=== PATIENT | male | born 1950 | race Caucasian/White ===

== ENCOUNTER 2018-03-08 14:11 | Emergency (ER) | payer MEDICARE, MEDICAID ==
[~2018-03-08] VITALS: Ht 180.3 cm; Wt 80.7 kg
[~2018-03-08 14:11] MED LIST: BENA40TA8 PO; GLIP10TA11 PO; METF10004 PO
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
[2018-03-08] MEDS ORDERED: IBUPROFEN 600 MG TABLET PO ONE ×2 (14:30→14:36)
--- NOTE | 2018-03-08 14:38 | NUR ---
XRAY AT BS
[2018-03-08] MEDS ORDERED: ATEN50TA PO (14:46)
[2018-03-08] MEDS ORDERED: TDAP [DIPH/PERTUSSIS/TET] 0.5 ML VIAL IM ONE ×2 (15:14→15:30)
[2018-03-08 15:19] VITALS: BP 151/84
== END 2018-03-08 15:20 | disposition home or self-care (01) ==
LOC: ER 14:12
DX: S92.534A Nondisplaced fracture of distal phalanx of right lesser toe(s), initial encounter for closed fracture (principal); S40.021A Contusion of right upper arm, initial encounter; S80.11XA Contusion of right lower leg, initial encounter; I10 Essential (primary) hypertension; E11.9 Type 2 diabetes mellitus without complications; V83.7XXA Person on outside of special industrial vehicle injured in nontraffic accident, initial encounter; Y93.01 Activity, walking, marching and hiking; Y92.89 Other specified places as the place of occurrence of the external cause; Y99.0 Civilian activity done for income or pay
CPT/HCPCS: 73060; 73590; 73610; 73630; 90471; 90715; 99284; A4606; Z7610

== ENCOUNTER 2018-03-09 13:26 | Emergency (ER) | payer MEDICARE, MEDICAID ==
[~2018-03-09] VITALS: Ht 180.3 cm; Wt 79.4 kg
[~2018-03-09 13:26] MED LIST changes: +ATEN50TA PO
[2018-03-09] MEDS ORDERED: BACITRACIN ZINC OINT PACKET 1 EA PACKET TP ONE (14:00)
[2018-03-09] MEDS ORDERED: MUPIROCIN OINT 2% 22 GM TUBE TP ONE (14:00)
[2018-03-09 14:02] VITALS: BP 155/75
== END 2018-03-09 14:30 | disposition home or self-care (01) ==
LOC: ER 13:29
DX: S92.501A Displaced unspecified fracture of right lesser toe(s), initial encounter for closed fracture (principal); S39.012A Strain of muscle, fascia and tendon of lower back, initial encounter; S90.414A Abrasion, right lesser toe(s), initial encounter; E11.9 Type 2 diabetes mellitus without complications; I10 Essential (primary) hypertension; W18.39XA Other fall on same level, initial encounter; Y93.89 Activity, other specified; Y92.89 Other specified places as the place of occurrence of the external cause; Y99.8 Other external cause status
CPT/HCPCS: A4606; A6403; Z7610

== ENCOUNTER 2018-11-09 16:36 | Emergency (ER) | payer MEDICARE, MEDICAID ==
[~2018-11-09] VITALS: Ht 180.3 cm; Wt 79.4 kg
[~2018-11-09 16:36] MED LIST changes: +METF-442 PO; -METF10004 PO
--- NOTE | 2018-11-09 16:36 | NUR ---
BB SELF: C/O DIZZINESS X 2-3 DAYS. PALPITATIONS NOTED TODAY. DENIES ANY CP. DENIES ANY DIZZINESS. PT AMBULATORY WITH STEADY GAIT. RR EVEN AND UNLABORED. VSAravind. AT BEDSIDE FOR SONYA.
[2018-11-09] MEDS ORDERED: ASPI-1152 PO (16:51)
[2018-11-09] MEDS ORDERED: diphenhydrAMINE HCL 50 MG/ML VIAL ONE (16:58)
[2018-11-09] MEDS ORDERED: diphenhydrAMINE HCL 50 MG/ML VIAL IV ONE (17:00)
[2018-11-09] MEDS ORDERED: IV NS 0.9% 1,000 ML BAG IV ONE ×2 (17:00→19:00)
[2018-11-09 17:07] LABS: EOSINOPHILS % (AUTO) 1.7 % (0.0-6.0); HEMATOCRIT 39 % (39-51); HEMOGLOBIN 13.3 g/dL (13.5-17.5); LYMPHOCYTES # (AUTO) 1.4 /CMM (0.8-4.8); LYMPHOCYTES % (AUTO) 28.3 % (20.0-44.0); MEAN CORPUSCULAR HGB CONC 34 g/dl (31.0-36.0); MEAN CORPUSCULAR VOLUME 102 fL (80-96); MONOCYTES # (AUTO) 0.4 /CMM (0.1-1.30); MONOCYTES % (AUTO) 8.5 % (2.0-12.0); NEUTROPHILS % (AUTO) 60.5 % (43.0-81.0); PLATELET COUNT (AUTO) 201 /CMM (150-450); RED BLOOD CELL COUNT(AUTO) 3.85 MIL/uL (4.5-6.0); WHITE BLOOD COUNT (AUTO) 4.9 K/uL (4.3-11.0)
[2018-11-09 17:26] LABS: ALANINE AMINOTRANSFERASE 21 U/L (12-78); ALKALINE PHOSPHATASE 36 U/L (46-116); BILIRUBIN,DIRECT 0.1 mg/dL (0.0-0.2); BILIRUBIN,TOTAL 0.5 mg/dL (0.2-1.0); CALCIUM, SERUM 9.3 mg/dL (8.5-10.1); CARBON DIOXIDE 25 mmol/L (21-32); CHLORIDE 107 mmol/L (98-107); CREATININE 1.1 mg/dL (0.6-1.3); GLUCOSE 176 mg/dL (74-106); POTASSIUM 4.8 mmol/L (3.5-5.1); SODIUM SERUM 140 mmol/L (136-145); TOTAL PROTEIN, SERUM 6.5 g/dL (6.4-8.2); UREA NITROGEN, BLOOD 25 mg/dL (7-18)
[2018-11-09 17:39] LABS: ASPARTATE AMINOTRANSFERASE 12 U/L (15-37)
--- NOTE | 2018-11-09 19:00 | NUR ---
[address] MORE [address] NS PER [address] ARREGUIN. PT HR 110'S
--- NOTE | 2018-11-09 19:12 | NUR ---
REPORT RECIEVED FROM TY THEODORE FOR PHYLLIS.
--- NOTE | 2018-11-09 19:30 | NUR ---
Patient discharged to home in stable condition. Written and verbal after care instructions given. Patient verbalizes understanding of instruction.IV removed. Catheter intact and site benign. Pressure and 4x4 applied to site. No bleeding noted. ambulatory with steady gait.
[2018-11-09 19:40] VITALS: BP 141/87
== END 2018-11-09 19:40 | disposition home or self-care (01) ==
LOC: ER 16:37
DX: E86.0 Dehydration (principal); R42 Dizziness and giddiness; R51 Headache; I10 Essential (primary) hypertension; E11.9 Type 2 diabetes mellitus without complications; R00.0 Tachycardia, unspecified; I44.4 Left anterior fascicular block; Z79.82 Long term (current) use of aspirin
CPT/HCPCS: 36415; 70450; 71045; 80048; 80076; 84484; 85025; 93005; 96361; 96374; 99284; J1200; J7030 ×2

== ENCOUNTER 2019-03-09 10:27 | Emergency (ER) | payer MEDICARE, MEDICAID ==
[~2019-03-09] VITALS: Ht 180.3 cm; Wt 80.7 kg
[~2019-03-09 10:27] MED LIST changes: +ASPI-1152 PO
[2019-03-09 10:47] VITALS: BP 134/78
== END 2019-03-09 12:18 | disposition home or self-care (01) ==
LOC: ER 10:30
DX: M25.511 Pain in right shoulder (principal); E11.9 Type 2 diabetes mellitus without complications; I10 Essential (primary) hypertension; Z98.890 Other specified postprocedural states; Z79.82 Long term (current) use of aspirin; Z79.84 Long term (current) use of oral hypoglycemic drugs; Z79.899 Other long term (current) drug therapy
CPT/HCPCS: 73030-TC

== ENCOUNTER 2019-04-02 10:42 | Emergency (ER) | payer MEDICARE, MEDICAID ==
[~2019-04-02] VITALS: Ht 180.3 cm; Wt 79.4 kg
[2019-04-02] MEDS ORDERED: ACETAMINOPHEN ES 500 MG TABLET PO ONE (11:00)
[2019-04-02] MEDS ORDERED: IV NS 0.9% 1,000 ML BAG IV ONE (11:00)
--- NOTE | 2019-04-02 11:00 | NUR ---
C/O DYSURIA x 2 DAYS. PATIENT AA/OX4, NO RESPIRATORY DISTRESS NOTED. UA SAMPLE OBTAINED ANDS ENT TO LAB. DR. CARDENAS AT BEDSIDE FOR EVAL. ATTACHED TO THE NET DEVELOPER SOFTWARE ENGINEER C, CHANGED INTO GOWN.
[2019-04-02] MEDS ORDERED: ACETAMINOPHEN ES 500 MG TABLET ONE (11:05)
[2019-04-02 11:16] LABS: BASOPHILS # (AUTO) 0.2 /CMM (0.0-0.2); BASOPHILS % (AUTO) 1.3 % (0.0-2.0); EOSINOPHILS % (AUTO) 0.3 % (0.0-6.0); HEMATOCRIT 41 % (39-51); HEMOGLOBIN 13.9 g/dL (13.5-17.5); LYMPHOCYTES # (AUTO) 0.7 /CMM (0.8-4.8); LYMPHOCYTES % (AUTO) 5.7 % (20.0-44.0); MEAN CORPUSCULAR HGB CONC 34 g/dl (31.0-36.0); MEAN CORPUSCULAR VOLUME 101 fL (80-96); MONOCYTES # (AUTO) 0.7 /CMM (0.1-1.30); MONOCYTES % (AUTO) 5.5 % (2.0-12.0); NEUTROPHILS # (AUTO) 11.6 /CMM (1.8-8.9); NEUTROPHILS % (AUTO) 87.2 % (43.0-81.0); PLATELET COUNT (AUTO) 182 /CMM (150-450); RED BLOOD CELL COUNT(AUTO) 4.04 MIL/uL (4.5-6.0); WHITE BLOOD COUNT (AUTO) 13.3 K/uL (4.3-11.0)
[2019-04-02 11:18] LABS: APPEARANCE,URINE Clear (CLEAR); BILIRUBIN,URINE Negative (NEGATIVE); BLOOD, URINE Large Ery/uL (NEGATIVE); COLOR,URINE Yellow (YELLOW); KETONES,URINE 15 (NEGATIVE); LEUKOCYTE ESTERASE ,URINE Trace (NEGATIVE); NITRITE, URINE Negative (NEGATIVE); PROTEIN,URINE 100 mg/dl (NEGATIVE); UGLUCOSE >=1000 mg/dL (NEGATIVE)
[2019-04-02 11:24] LABS: CALCIUM, SERUM 9.4 mg/dL (8.5-10.1); CARBON DIOXIDE 29 mmol/L (21-32); CHLORIDE 99 mmol/L (98-107); CREATININE 1.1 mg/dL (0.6-1.3); GLUCOSE 328 mg/dL (74-106); SODIUM SERUM 137 mmol/L (136-145); UREA NITROGEN, BLOOD 16 mg/dL (7-18)
[2019-04-02 11:29] LABS: ALANINE AMINOTRANSFERASE 16 U/L (12-78); ALBUMIN 3.4 g/dL (3.4-5.0); ALKALINE PHOSPHATASE 39 U/L (46-116); ASPARTATE AMINOTRANSFERASE 9 U/L (15-37); BILIRUBIN,DIRECT 0.2 mg/dL (0.0-0.2); TOTAL PROTEIN, SERUM 7.4 g/dL (6.4-8.2)
[2019-04-02 11:42] LABS: BACTERIA,URINE Rare /HPF (None Seen); SQUAMOUS EPITHELIAL CELL,UR Rare /HPF (None Seen)
[2019-04-02] MEDS ORDERED: CEFTRIAXONE 1GM BAG (ER ONLY) 50 ML IV ONE (12:00)
[2019-04-02] MEDS ORDERED: CEFTRIAXONE 1GM BAG (ER ONLY) 1 GM/50 ML PIGGYBACK IV ONE (12:00)
--- NOTE | 2019-04-02 12:37 | NUR ---
BLADDER SCAN DONE SHOWS 106ML POST VOID.
[2019-04-02] MEDS ORDERED: IV NS 0.9% 500 ML IV ONE (13:00)
--- NOTE | 2019-04-02 13:25 | NUR ---
PATIENT A/OX4, DENIES PAIN AT THIST CAROLE. IV removed. Catheter intact and site benign. Pressure and 4x4 applied to site. No bleeding noted.Patient discharged to home in stable condition. Written and verbal after care instructions given. Patient verbalizes understanding of instruction.
[2019-04-02 13:37] VITALS: BP 115/64
== END 2019-04-02 13:38 | disposition home or self-care (01) ==
LOC: ER 10:42
DX: N12 Tubulo-interstitial nephritis, not specified as acute or chronic (principal); E11.65 Type 2 diabetes mellitus with hyperglycemia; I10 Essential (primary) hypertension; Z98.890 Other specified postprocedural states; Z79.82 Long term (current) use of aspirin; Z79.84 Long term (current) use of oral hypoglycemic drugs; Z79.899 Other long term (current) drug therapy
CPT/HCPCS: 36415; 71045; 80048; 80076; 81001; 82962; 83605; 84145; 84484; 85025; 85730; 87040 ×2; 87086; 93005; 96361; 96374; 99284; J0696; J7030; J7040; 81000-TC; 87186-TC

== ENCOUNTER 2020-01-28 17:14 | Emergency (ER) | payer MEDICARE, OTHER ==
[~2020-01-28] VITALS: Ht 180.3 cm; Wt 79.4 kg
[2020-01-28] MEDS ORDERED: TAMS-12 MT (17:20)
[2020-01-28] MEDS ORDERED: IV NS 0.9% 1,000 ML BAG IV ONE (18:00)
[2020-01-28 18:11] LABS: BASOPHILS % (AUTO) 0.6 % (0.0-2.0); EOSINOPHILS % (AUTO) 0.7 % (0.0-6.0); HEMATOCRIT 43 % (39-51); HEMOGLOBIN 14.5 g/dL (13.5-17.5); LYMPHOCYTES # (AUTO) 1.5 /CMM (0.8-4.8); LYMPHOCYTES % (AUTO) 22.8 % (20.0-44.0); MEAN CORPUSCULAR HGB CONC 33 g/dl (31.0-36.0); MEAN CORPUSCULAR VOLUME 104 fL (80-96); MONOCYTES # (AUTO) 0.6 /CMM (0.1-1.30); MONOCYTES % (AUTO) 8.6 % (2.0-12.0); NEUTROPHILS # (AUTO) 4.4 /CMM (1.8-8.9); NEUTROPHILS % (AUTO) 67.3 % (43.0-81.0); PLATELET COUNT (AUTO) 227 /CMM (150-450); RED BLOOD CELL COUNT(AUTO) 4.18 MIL/uL (4.5-6.0); WHITE BLOOD COUNT (AUTO) 6.5 K/uL (4.3-11.0)
[2020-01-28 18:15] LABS: CARBON DIOXIDE 26 mmol/L (21-32); CHLORIDE 103 mmol/L (98-107); GLUCOSE 192 mg/dL (74-106); POTASSIUM 4.8 mmol/L (3.5-5.1); SODIUM SERUM 139 mmol/L (136-145); UREA NITROGEN, BLOOD 38 mg/dL (7-18)
--- NOTE | 2020-01-28 18:20 | NUR ---
patient came in to the er c/o dizziness x 3 days. On room air, breathing evenly and unlabored. connected to the monitor and pulse ox. kept comfortable, will continue to monitor accordingly.
--- NOTE | 2020-01-28 20:32 | NUR ---
IV removed. Catheter intact and site benign. Pressure and 4x4 applied to site. No bleeding noted.Patient discharged to home in stable condition. Written and verbal after care instructions given. Patient verbalizes understanding of instruction.
[2020-01-28 20:36] VITALS: BP 124/67
== END 2020-01-28 20:36 | disposition home or self-care (01) ==
LOC: ER 17:14
DX: E86.0 Dehydration (principal); N17.9 Acute kidney failure, unspecified; R42 Dizziness and giddiness; I10 Essential (primary) hypertension; E11.9 Type 2 diabetes mellitus without complications; Z98.890 Other specified postprocedural states; Z79.899 Other long term (current) drug therapy; Z79.82 Long term (current) use of aspirin
CPT/HCPCS: 36415; 70450; 80048; 82962; 84484; 85025; 93005; 96360; 99285; J7030

== ENCOUNTER 2020-09-20 16:38 | Inpatient (IN) | payer MEDICARE, OTHER ==
[~2020-09-20] VITALS: Ht 180.3 cm; Wt 83.9 kg
[~2020-09-20 16:38] MED LIST changes: -ASPI-1152 PO; +ASPI-1420 PO; +TAMS-12 PO
--- NOTE | 2020-09-20 16:38 | NUR ---
PT BIB SELF C/O DIZZINESS AND BLURRING OF VISION FOR 1 WEEK. PT IS AAOX4, NOT IN RESPIRATORY DISTRESS, HOOKED TO CONTACT LENS CUTTER, KEPT RESTED AND COMFORTABLE. WILL CONTINUE TO MONITOR.
--- NOTE | 2020-09-20 17:24 | NUR ---
SEEN AND EXAMINED BY .
--- NOTE | 2020-09-20 17:43 | NUR ---
PHLEB AT BEDSIDE FOR BLOOD DRAW.
[2020-09-20 17:54] LABS: BASOPHILS % (AUTO) 0.8 % (0.0-2.0); EOSINOPHILS % (AUTO) 2.2 % (0.0-6.0); HEMATOCRIT 39 % (39-51); HEMOGLOBIN 13.3 g/dL (13.5-17.5); LYMPHOCYTES # (AUTO) 1.4 /CMM (0.8-4.8); LYMPHOCYTES % (AUTO) 25.9 % (20.0-44.0); MEAN CORPUSCULAR HGB CONC 34 g/dl (31.0-36.0); MEAN CORPUSCULAR VOLUME 101 fL (80-96); MONOCYTES # (AUTO) 0.5 /CMM (0.1-1.30); MONOCYTES % (AUTO) 8.9 % (2.0-12.0); NEUTROPHILS # (AUTO) 3.3 /CMM (1.8-8.9); NEUTROPHILS % (AUTO) 62.2 % (43.0-81.0); PLATELET COUNT (AUTO) 210 /CMM (150-450); RED BLOOD CELL COUNT(AUTO) 3.86 MIL/uL (4.5-6.0); WHITE BLOOD COUNT (AUTO) 5.2 K/uL (4.3-11.0)
--- NOTE | 2020-09-20 18:03 | NUR ---
PT IS WHEELED TO CT SCAN VIA [facility].
[2020-09-20 18:19] LABS: ALANINE AMINOTRANSFERASE 22 U/L (12-78); ALBUMIN 3.6 g/dL (3.4-5.0); ALKALINE PHOSPHATASE 32 U/L (46-116); ASPARTATE AMINOTRANSFERASE 12 U/L (15-37); BILIRUBIN,DIRECT 0.1 mg/dL (0.0-0.2); BILIRUBIN,TOTAL 0.4 mg/dL (0.2-1.0); CALCIUM, SERUM 9.5 mg/dL (8.5-10.1); CARBON DIOXIDE 29 mmol/L (21-32); CHLORIDE 103 mmol/L (98-107); CREATININE 1.3 mg/dL (0.6-1.3); GLUCOSE 198 mg/dL (74-106); SODIUM SERUM 138 mmol/L (136-145); TOTAL PROTEIN, SERUM 6.9 g/dL (6.4-8.2)
[2020-09-20 18:25] LABS: POTASSIUM 6.6 mmol/L (3.5-5.1)
[2020-09-20 18:42] LABS: UREA NITROGEN, BLOOD 21 mg/dL (7-18)
[2020-09-20] MEDS ORDERED: DEXTROSE 50%-WATER 50 ML DISP.SYRIN ONE (18:45)
[2020-09-20] MEDS ORDERED: SODIUM BICARBONATE SYR 50 MEQ/50 ML DISP.SYRIN ONE (18:45)
[2020-09-20] MEDS ORDERED: INSULIN REGULAR, HUMAN 100 UNIT/ML 10 ML VIAL ONE (18:46)
[2020-09-20] MEDS ORDERED: ALBUTEROL FS 2.5 MG/3 ML VIAL.NEB ONE (19:00)
[2020-09-20] MEDS ORDERED: SODIUM BICARBONATE SYR 50 MEQ/50 ML DISP.SYRIN IV ONE (19:00)
[2020-09-20] MEDS ORDERED: IV NS 0.9% 1,000 ML BAG IV ONE (19:00)
[2020-09-20] MEDS ORDERED: INSULIN REGULAR, HUMAN 100 UNIT/ML 10 ML VIAL IV ONE (19:00)
[2020-09-20] MEDS ORDERED: ALBUTEROL FS 2.5 MG/3 ML VIAL.NEB NEB ONE (19:00)
[2020-09-20] MEDS ORDERED: DEXTROSE 50%-WATER 50 ML DISP.SYRIN IV ONE (19:00)
--- NOTE | 2020-09-20 19:13 | NUR ---
CALLED DR. GRISSOM [phone], INSTRUCTIONS STATES TO CALL [facility] FOR ADMISSION. CALLED [facility] FOR PANEL ADMISSION. MARCUS SHEN PAGED.
--- NOTE | 2020-09-20 19:14 | NUR ---
CALLED FOR COVID SWAB
--- NOTE | 2020-09-20 19:29 | NUR ---
COVID SWAB SENT TO LAB
--- NOTE | 2020-09-20 19:29 | NUR ---
ATTEMPTED TO CALL DR. GRISSOM DIRECT NUMBER, VM INSTRUCTIONS TO CALL [facility]
--- NOTE | 2020-09-20 20:24 | NUR ---
PER LAB COVID NEGATIVE
--- NOTE | 2020-09-20 20:27 | NUR ---
CALLED RN SUP FOR TELE BED
--- NOTE | 2020-09-20 20:28 | NUR ---
PT ACCEPTED TO 322-1
[2020-09-20] MEDS ORDERED: ACETAMINOPHEN 325 MG TABLET PO PRN (20:30)
[2020-09-20] MEDS ORDERED: ONDANSETRON HCL/PF 4 MG/2 ML VIAL IVP PRN (20:30)
[2020-09-20] MEDS ORDERED: IV NS 0.9% 1,000 ML IV PRN (20:30)
[2020-09-20] MEDS ORDERED: Z GUARD REMEDY 2 OZ OINT TP PRN (20:30)
--- NOTE | 2020-09-20 20:42 | NUR ---
CALLED IN REPORT TO FAWAD THEODORE
[2020-09-20 21:00] VITALS: BP 146/93
--- NOTE | 2020-09-20 21:15 | NUR ---
TELE/RN OPENING NOTES RECEIVED PATIENT FROM ER, PATIENT ARRIVED ON UNIT AT 2053HRS VIA GURNEY. PATIENT WAS ABLE TO AMBULATE TO BED. PATIENT IS ALERT AND ORIENTED X 4. PATIENTS BREATHING IS EVEN AND UNLABORED. PATIENT IN NO SIGNS OF SOB OR RESPIRATORY DISTRESS. PATIENT DENIES PAIN, NO CHEST PAIN NOTED. PATIENT IS STABLE ON ROOM AIR, V/S ARE WITHIN NORMAL LIMITS. PATIENT SKIN IS INTACT. PATIENT SIGNED BELONGINGS LISTS. SAFETY MEASURES ARE IN PLACE, BED IS LOCKED AND PLACED IN THE LOWEST POSITION, SIDE RAILS UP X 2, CALL LIGHT IS WITHIN REACH. WILL CONTINUE TO MONITOR THROUGH OUT SHIFT.
[2020-09-20] MEDS: ENOXAPARIN SODIUM 40 MG/0.4 ML DISP.SYRIN SQ SCH (22:17)
[2020-09-21 00:56] VITALS: BP 123/71
[2020-09-21 06:34] LABS: BASOPHILS % (AUTO) 0.7 % (0.0-2.0); EOSINOPHILS % (AUTO) 1.8 % (0.0-6.0); HEMATOCRIT 39 % (39-51); LYMPHOCYTES # (AUTO) 1.6 /CMM (0.8-4.8); LYMPHOCYTES % (AUTO) 31.2 % (20.0-44.0); MEAN CORPUSCULAR HGB CONC 34 g/dl (31.0-36.0); MEAN CORPUSCULAR VOLUME 101 fL (80-96); MONOCYTES # (AUTO) 0.5 /CMM (0.1-1.30); MONOCYTES % (AUTO) 9.4 % (2.0-12.0); NEUTROPHILS % (AUTO) 56.9 % (43.0-81.0); PLATELET COUNT (AUTO) 192 /CMM (150-450); RED BLOOD CELL COUNT(AUTO) 3.82 MIL/uL (4.5-6.0); WHITE BLOOD COUNT (AUTO) 5.3 K/uL (4.3-11.0)
--- NOTE | 2020-09-21 06:50 | NUR ---
MS/RN CLOSING NOTES PATIENT IN BED SLEEPING EASY TO AROUSE. PATIENT IS ALERT AND ORIENTED X 4. PATIENTS BREATHING IS EVEN AND UNLABORED. NO SIGN OF SOB OR RESPIRATORY DISTRESS NOTED. PATIENT STATES NO PAIN AT THIS TIME. PATIENT HAS IV ACCESS ON LEFT HAND 18G INTACT RUNNING NS AT 75 ML/HR. ALL NEEDS HAVE BEEN MET DURING SHIFT. SAFETY MEASURES ARE IN PLACE, BED IS LOCKED AND PLACED IN THE LOWEST POSITION, SIDE RAILS UP X 2, CALL LIGHT IS WITHIN REACH. WILL ENDORSE CARE TO DAY SHIFT NURSE.
[2020-09-21 07:30] LABS: THYROID STIMULATING HORMONE 0.947 uIU/mL (0.358-3.74)
[2020-09-21 07:46] LABS: CALCIUM, SERUM 8.7 mg/dL (8.5-10.1); CREATININE 0.9 mg/dL (0.6-1.3); MAGNESIUM 1.9 mg/dL (1.8-2.4); PHOSPHORUS 3.6 mg/dL (2.5-4.9); POTASSIUM 5.2 mmol/L (3.5-5.1)
[2020-09-21] MEDS ORDERED: ASPIRIN EC 81 MG TABLET.DR PO ONE (07:46)
[2020-09-21] MEDS ORDERED: LACTULOSE 10 G/15 ML UDC (PYXIS) ONE (07:46)
[2020-09-21] MEDS ORDERED: BENAZEPRIL HCL 20 MG TABLET ONE (07:47)
[2020-09-21] MEDS ORDERED: ATENOLOL 50 MG TABLET ONE (07:47)
--- NOTE | 2020-09-21 07:59 | NUR ---
TELE/RN OPENING NOTES REPORT RECEIVED AT BEDSIDE. PATIENT A&O X4. RESPIRATIONS EVEN AND UNLABORED. NO SIGNS OF SOB OR RESPIRATORY DISTRESS. PATIENT DENIES PAIN, NO CHEST PAIN NOTED. PATIENT IS STABLE ON ROOM AIR, V/S ARE WITHIN NORMAL LIMITS. SAFETY MEASURES IN PLACE. WILL CONTINUE TO MONITOR
[2020-09-21] MEDS: LACTULOSE 10 G/15 ML UDC (PYXIS) PO SCH ×2 (08:12→18:20)
[2020-09-21] MEDS: METFORMIN 500 MG TABLET PO SCH ×2 (08:14→18:20)
[2020-09-21] MEDS: PANTOPRAZOLE 40 MG TABLET.DR PO SCH (08:14)
[2020-09-21] MEDS: ATENOLOL 50 MG TABLET PO SCH (08:16)
[2020-09-21] MEDS: ASPIRIN EC 81 MG TABLET.DR PO SCH (08:16)
[2020-09-21 08:17] VITALS: BP 129/65
[2020-09-21] MEDS: glipiZIDE 10 MG TABLET PO SCH ×2 (08:17→17:30)
[2020-09-21] MEDS ORDERED: ENOXAPARIN SODIUM 40 MG/0.4 ML DISP.SYRIN SQ SCH (09:00)
[2020-09-21] MEDS ORDERED: BENAZEPRIL HCL 20 MG TABLET PO SCH (09:00)
[2020-09-21 12:11] VITALS: BP 151/96
--- NOTE | 2020-09-21 16:04 | NUR ---
MS/TELE NOTE NOTIFIED BY DR. MCKEE PT MRI SHOWED SWELLING TO LEFT SIDE OF BRAIN AND HE RECOMMENDED FOLLOW UP MRI WITH CONTRAST @1440. NOTIFIED AT 1448 VIA SMS. AWAITING RESPONSE AT THIS TIME. NNO.
[2020-09-21 16:26] VITALS: BP 135/76
--- NOTE | 2020-09-21 19:32 | NUR ---
RN NOTES REPORT RECEIVED AT BEDSIDE. PATIENT A&O X4. RESPIRATIONS EVEN AND UNLABORED. NO SIGNS OF SOB OR RESPIRATORY DISTRESS. PATIENT DENIES PAIN, NO CHEST PAIN NOTED. PATIENT IS STABLE ON ROOM AIR TOLERATING WELL. SAFETY MEASURES IN PLACE. WILL CONTINUE TO MONITOR.
[2020-09-21 20:27] VITALS: BP 139/72
[2020-09-21] MEDS: ENOXAPARIN SODIUM 40 MG/0.4 ML DISP.SYRIN SQ SCH (21:10)
[2020-09-21 23:59] VITALS: BP 124/70
[2020-09-22 02:33] VITALS: BP 124/70
[2020-09-22 04:00] VITALS: BP 147/67
[2020-09-22 04:27] VITALS: BP 143/88
[2020-09-22 06:32] LABS: BASOPHILS % (AUTO) 0.7 % (0.0-2.0); HEMATOCRIT 40 % (39-51); HEMOGLOBIN 13.9 g/dL (13.5-17.5); LYMPHOCYTES # (AUTO) 1.6 /CMM (0.8-4.8); LYMPHOCYTES % (AUTO) 31.7 % (20.0-44.0); MEAN CORPUSCULAR HGB CONC 34 g/dl (31.0-36.0); MEAN CORPUSCULAR VOLUME 100 fL (80-96); MONOCYTES # (AUTO) 0.5 /CMM (0.1-1.30); MONOCYTES % (AUTO) 9.5 % (2.0-12.0); NEUTROPHILS # (AUTO) 2.9 /CMM (1.8-8.9); NEUTROPHILS % (AUTO) 56.1 % (43.0-81.0); PLATELET COUNT (AUTO) 200 /CMM (150-450); RED BLOOD CELL COUNT(AUTO) 4.02 MIL/uL (4.5-6.0); WHITE BLOOD COUNT (AUTO) 5.2 K/uL (4.3-11.0)
--- NOTE | 2020-09-22 06:32 | NUR ---
RN NOTES PT A&O X4. RESPIRATIONS EVEN AND UNLABORED. NO SIGNS OF SOB OR RESPIRATORY DISTRESS. PATIENT DENIES PAIN, NO CHEST PAIN NOTED. PATIENT IS STABLE ON ROOM AIR TOLERATING WELL. SAFETY MEASURES IN PLACE. WILL ENDORSE CARE TO DAY SHIFT.
[2020-09-22 07:26] LABS: ALBUMIN 3.2 g/dL (3.4-5.0); BILIRUBIN,TOTAL 0.5 mg/dL (0.2-1.0); CALCIUM, SERUM 8.8 mg/dL (8.5-10.1); CREATININE 0.9 mg/dL (0.6-1.3); MAGNESIUM 1.7 mg/dL (1.8-2.4); PHOSPHORUS 3.3 mg/dL (2.5-4.9); POTASSIUM 4.1 mmol/L (3.5-5.1); TOTAL PROTEIN, SERUM 6.6 g/dL (6.4-8.2)
--- NOTE | 2020-09-22 07:39 | NUR ---
CHIEF SERVICE DISPATCHER OPENING NOTE PT RECEIVED IN BED, RESTING, AROUSABLE AND RESPONSIVE. A/O X 4 WITH NO C/O PAIN AT THIS TIME. PT IS ON ROOM AIR WITH NO SOB OR RESPIRATORY DISTRESS NOTED. PT'S TELE MONITOR SHOWS SINUS BRADYCARDIA AT 57 BPM WITH NO S/SX OF CARDIAC DISTRESS NOTED. PT'S IV ACCESS IS ON LEFT HAND G#18, PATENT, INTACT AND FLUSHING WELL WITH NS RUNNING AT 50 ML/HR, NO S/SX INFECTION, INFILTRATION AND IRRITATION NOTED. SAFETY MEASURES IN PLACE: BED IS IN LOWEST POSITION AND LOCKED WITH BOTH UPPER SIDE RAILS UP X2. CALL LIGHT PLACED WITHIN REACH. WILL CONTINUE TO MONITOR.
[2020-09-22 08:00] VITALS: BP 134/74
[2020-09-22] MEDS: glipiZIDE 10 MG TABLET PO SCH ×2 (08:22→17:09)
[2020-09-22] MEDS: METFORMIN 500 MG TABLET PO SCH ×2 (08:22→17:10)
[2020-09-22] MEDS: PANTOPRAZOLE 40 MG TABLET.DR PO SCH (08:22)
[2020-09-22] MEDS: ATENOLOL 50 MG TABLET PO SCH (08:23)
[2020-09-22] MEDS: LACTULOSE 10 G/15 ML UDC (PYXIS) PO SCH ×2 (08:23→17:09)
[2020-09-22] MEDS: ASPIRIN EC 81 MG TABLET.DR PO SCH (08:23)
[2020-09-22] MEDS: Magnesium 1GM/D5W 100ML PREMIX 100 ML IV SCH ×2 (09:14→10:40)
[2020-09-22] MEDS ORDERED: BENAZEPRIL HCL 20 MG TABLET PO SCH (11:00)
[2020-09-22 11:58] VITALS: BP 154/76
--- NOTE | 2020-09-22 13:11 | NUR ---
RN NOTE PT PICKED UP BY NELLIE DUNN FOR MRI WITH CONTRAST. PT PICKED UP VIA WHEELCHAIR.
[2020-09-22] MEDS ORDERED: [UNRECOGNIZED DRUG - CODE] PO (15:34)
--- NOTE | 2020-09-22 16:51 | NUR ---
RN NOTE RECEIVED CALL FROM DR. GRISSOM WITH ORDERS TO D/C PT AND GIVE PT KEPPRA 500 MG PO X 1 BEFORE DISCHARGE, WELL INSTRUCTIONS FOR PT NOT TO DRIVE HOME. WILL CARRY OUT ORDER.
[2020-09-22] MEDS ORDERED: LEVETIRACETAM (250 MG) 250 MG TABLET PO ONE (17:00)
--- NOTE | 2020-09-22 18:22 | NUR ---
RN NOTES PATIENT JUST HAD EEG DONE BY TECH.
--- NOTE | 2020-09-22 18:49 | NUR ---
MS SENIOR PRODUCT INTEGRITY ENGINEER NOTE PT OK TO D/C. PT EDUCATED ON CONDITION AND MD PRESCRIPTIONS, VERBALIZES UNDERSTANDING. ALL BELONGINGS ACCOUNTED FOR AND SIGNED FOR. NO SKIN ISSUES. IV ACCESS REMOVED, PRESSURE DRESSING APPLIED TO SITE. NAME ARM BAND REMOVED. DISCHARGE INSTRUCTIONS GIVEN TO PT, VERBALIZED UNDERSTANDING. INSTRUCTED TO FOLLOW UP WITH PCP IN 1-2 WEEKS. PT DISCHARGED HOME IN STABLE CONDITION WITH NO C/O PAIN. PT LEFT UNIT AT 18:25, AMBULATING WITH STEADY GATE. ACCOMPANIED BY ME TO THE LOBBY. PICKED UP BY DAUGHTER ESTRELLA TO DRIVE HIM HOME. CHARGE NURSE MADE AWARE OF DISCHARGE.
== END 2020-09-22 18:54 | disposition home or self-care (01) | DRG 640 ==
LOC: ER 17:06 → TELE 20:36 → MED 09-22 08:41
PROVIDERS: ADMIT Registered Nurse; ATTEND Legal Medicine
DX: E87.5 Hyperkalemia (principal); N17.0 Acute kidney failure with tubular necrosis; G93.6 Cerebral edema; I10 Essential (primary) hypertension; E11.9 Type 2 diabetes mellitus without complications; I70.0 Atherosclerosis of aorta; T46.4X5A Adverse effect of angiotensin-converting-enzyme inhibitors, initial encounter; E78.5 Hyperlipidemia, unspecified; Z98.890 Other specified postprocedural states; Z79.84 Long term (current) use of oral hypoglycemic drugs; Z79.899 Other long term (current) drug therapy; F10.10 Alcohol abuse, uncomplicated; Y90.9 Presence of alcohol in blood, level not specified; N13.9 Obstructive and reflux uropathy, unspecified; I35.0 Nonrheumatic aortic (valve) stenosis; Y92.009 Unspecified place in unspecified non-institutional (private) residence as the place of occurrence of the external cause; V89.2XXD Person injured in unspecified motor-vehicle accident, traffic, subsequent encounter; I67.2 Cerebral atherosclerosis
CPT/HCPCS: 36415; 70450-TC; 70551-TC; 70552-TC; 71045-TC; 80048-TC; 80053-TC; 80061-TC; 80076-TC; 83735-TC; 84100-TC; 84443-TC; 84484-TC; 85025-TC; 87081-TC; 93307-TC; 95819-TC; 97116-TC; 97530-TC; C9803; G0378; J1650; J1815; J3475; J3490; J7030